=== PATIENT | male | born 1950 | race Caucasian/White ===

== ENCOUNTER → 2016-06-22 | Outpatient (CLI) | payer BC ==
[2016-06-22 18:01] LABS: BUN/CREATININE RATIO 19 (0-10)
== END ==
LOC: LAB 16:44
PROVIDERS: Internal Medicine Clinical Cardiac Electrophysiology
DX: I48.91 Unspecified atrial fibrillation (principal)
CPT/HCPCS: 36415; 71020; 80053; 84436; 84439; 84443; 84479; 84480

== ENCOUNTER → 2016-08-31 | Outpatient (CLI) | payer BC | LOC: RAD 17:14 | DX: I48.1 Persistent atrial fibrillation (principal); Z79.899 Other long term (current) drug therapy | CPT/HCPCS: 71020 ==